=== PATIENT | female | born 2000 | race Hispanic/Latino ===

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

== ENCOUNTER 2023-03-24 14:48 | Inpatient (IN) | payer OTHER ==
[~2023-03-24] VITALS: Ht 152.4 cm; Wt 63.0 kg
[2023-03-24 15:44] LABS: BASOPHILS % (AUTO) 0.2 % (0.0-5.0); HEMATOCRIT 38.5 % (36-48); LYMPHOCYTES % (AUTO) 5.1 % (21.0-51.0); MEAN CORPUSCULAR HEMOGLOBIN 29.3 pg (27.0-33.0); MEAN CORPUSCULAR HGB CONC 33.2 g/dL (32.0-36.0); MEAN CORPUSCULAR VOLUME 88.1 fL (79-99); MONOCYTES % (AUTO) 2.2 % (3.0-13.0); NEUTROPHILS % (AUTO) 92.2 % (40.0-77.0); PLATELET COUNT (AUTO) 290 K/uL (130-400); RED BLOOD CELL COUNT(AUTO) 4.37 MIL/uL (4.00-5.50); RED CELL DISTRIBUTION WIDTH 12.2 % (11.0-15.5); WHITE BLOOD COUNT (AUTO) 14.4 K/uL (4.8-10.8)
[2023-03-24 16:06] LABS: APPEARANCE,URINE CLEAR (CLEAR); BILIRUBIN,URINE NEGATIVE (NEGATIVE); COLOR,URINE LIGHT-YELLOW (YELLOW); GLUCOSE, URINE (UA) NEGATIVE (NEGATIVE); KETONES,URINE 10 mg/dL (NEGATIVE); LEUKOCYTE ESTERASE ,URINE 25 Leu/uL (NEGATIVE); NITRATE,URINE NEGATIVE (NEGATIVE); OCCULT BLOOD,URINE NEGATIVE (NEGATIVE); PROTEIN,URINE NEGATIVE (NEGATIVE); UROBILINOGEN,URINE 0.2 mg/dL (0.2-1.0)
[2023-03-24 16:08] LABS: CARBON DIOXIDE 27 mmol/L (21-32); CHLORIDE 102 mmol/L (101-111); CREATININE 0.7 mg/dL (0.5-1.5); GLOMERULAR FILTR. RATE CALC 125 mL/min (>90); GLUCOSE,RANDOM 119 mg/dL (70-105); POTASSIUM 3.9 mmol/L (3.5-5.1); SODIUM SERUM 140 mmol/L (136-145); UREA NITROGEN, BLOOD 10 mg/dL (7-18)
[2023-03-24 16:08] LABS: MUCUS,URINE RARE LPF (None Seen); SQUAMOUS EPITHELIAL CELL,UR FEW /HPF (0-2)
[2023-03-24 16:09] LABS: ALANINE AMINOTRANSFERASE 21 U/L (12-78); ALBUMIN 4.5 g/dL (3.5-5.0); ASPARTATE AMINOTRANSFERASE 16 U/L (10-37)
[2023-03-24 16:11] LABS: LIPASE < 50 U/L (114-286)
[2023-03-24] MEDS ORDERED: IOHEXOL-350 75 ML VIAL IV ONE (17:00)
[2023-03-24] MEDS ORDERED: ZOSYN 3.375GM+NS 50ML 50 ML IVPB ONE (17:53)
[2023-03-24] MEDS ORDERED: ZOSYN 3.375GM +NS 50ML IVPB ONE (18:00)
[2023-03-24] MEDS: ZOSYN 3.375GM +NS 50ML IVPB SCH (18:30)
[2023-03-24] MEDS ORDERED: DiphenhydrAMINE HCL 50 MG/ML VIAL IV PRN (19:30)
[2023-03-24] MEDS ORDERED: MORPHINE 2 MG SYG IVP PRN (19:30)
[2023-03-24] MEDS ORDERED: ACETAMINOPHEN 650 MG SUPPOSITORY RC PRN (19:30)
[2023-03-24] MEDS ORDERED: KETOROLAC 15MG/ML VIAL (15MG/ML) IV PRN (19:30)
[2023-03-24] MEDS ORDERED: ONDANSETRON 4MG INJ IV PRN (19:30)
[2023-03-24] MEDS ORDERED: 0.9%NACL 50ML IV SCH (20:00)
[2023-03-24] MEDS: LACTATED RINGERS 1000ML 1,000 ML IV SCH ×2 (20:23→20:24)
[2023-03-24 20:36] VITALS: BP 108/66
[2023-03-24] MEDS ORDERED: ZOSYN 3.375GM+NS 50ML 50 ML IV SCH (21:00)
[2023-03-24] MEDS: FAMOTIDINE 20MG VIAL IV SCH (21:41)
[2023-03-24 22:12] VITALS: BP 104/66
[2023-03-25] VITALS (25 sets, daily range): BP systolic 86–140; BP diastolic 46–87
[2023-03-25] MEDS: ZOSYN 3.375GM +NS 50ML IVPB SCH ×3 (03:02→18:00)
[2023-03-25 04:15] LABS: HEMATOCRIT 35.3 % (36-48); MEAN CORPUSCULAR HEMOGLOBIN 29.2 pg (27.0-33.0); MEAN CORPUSCULAR HGB CONC 32.3 g/dL (32.0-36.0); MEAN CORPUSCULAR VOLUME 90.5 fL (79-99); RED BLOOD CELL COUNT(AUTO) 3.9 MIL/uL (4.00-5.50); RED CELL DISTRIBUTION WIDTH 12.4 % (11.0-15.5); WHITE BLOOD COUNT (AUTO) 8.2 K/uL (4.8-10.8)
[2023-03-25 04:28] LABS: CREATININE 0.7 mg/dL (0.5-1.5); POTASSIUM 3.7 mmol/L (3.5-5.1)
[2023-03-25] MEDS: FAMOTIDINE 20MG VIAL IV SCH ×2 (08:05→20:57)
[2023-03-25] MEDS: LACTATED RINGERS 1000ML 1,000 ML IV SCH ×2 (08:09→18:05)
[2023-03-25] MEDS ORDERED: GLYCOPYRROLATE 1 MG/5 ML SYRINGE ONE (09:41)
[2023-03-25] MEDS ORDERED: MIDAZOLAM HCL 1 MG/ML 2ML VIAL ONE (09:41)
[2023-03-25] MEDS ORDERED: PROPOFOL 10 MG/ML 20ML VIAL IV ONE (09:41)
[2023-03-25] MEDS ORDERED: DEXAMETHASONE SOD PHOSPHATE 10MG/ML 1ML VIAL ONE (09:41)
[2023-03-25] MEDS ORDERED: LIDOCAINE PF 100MG/5ML (2%) SYRINGE 5ML ONE (09:41)
[2023-03-25] MEDS ORDERED: ROCURONIUM 10MG/1ML SYR 10 MG/ML ML ONE (09:41)
[2023-03-25] MEDS ORDERED: SUCCINYLCHOLINE CHLORIDE 20 MG/ML 10 ML VIAL ONE (09:41)
[2023-03-25] MEDS ORDERED: NEOSTIGMINE 5MG/5ML SYR IV ONE (09:41)
[2023-03-25] MEDS ORDERED: ONDANSETRON 4MG INJ ONE (09:41)
[2023-03-25] MEDS ORDERED: FENTANYL CITRATE PF 50 MCG/1 ML 2ML VIAL ONE (09:42)
[2023-03-25] MEDS ORDERED: BUPIVACAINE/PF 0.5% 50ML 5 MG/ML VIAL ONE (10:04)
[2023-03-25] MEDS ORDERED: BUPIVACAINE/PF 0.5% 50ML 5 MG/ML VIAL IJ ONE (10:42)
[2023-03-25] MEDS ORDERED: KETOROLAC 30MG VIAL (30MG/ML) ONE (10:59)
[2023-03-25] MEDS ORDERED: MEPERIDINE-PF 25 MG/ML SYG ONE ×2 (11:37→11:59)
[2023-03-25] MEDS: MORPHINE 4 MG SYG IVP PRN ×2 (14:51→20:57)
[2023-03-26] MEDS: ZOSYN 3.375GM +NS 50ML IVPB SCH ×2 (02:07→12:47)
[2023-03-26 03:45] VITALS: BP 89/47
[2023-03-26 05:27] LABS: BASOPHILS % (AUTO) 0.1 % (0.0-5.0); EOSINOPHILS % (AUTO) 0.1 % (0.0-8.0); HEMATOCRIT 32.5 % (36-48); LYMPHOCYTES % (AUTO) 10.4 % (21.0-51.0); MEAN CORPUSCULAR HGB CONC 32.3 g/dL (32.0-36.0); MEAN CORPUSCULAR VOLUME 89.8 fL (79-99); MONOCYTES % (AUTO) 6.9 % (3.0-13.0); PLATELET COUNT (AUTO) 230 K/uL (130-400); RED BLOOD CELL COUNT(AUTO) 3.62 MIL/uL (4.00-5.50); RED CELL DISTRIBUTION WIDTH 12.1 % (11.0-15.5); WHITE BLOOD COUNT (AUTO) 9.3 K/uL (4.8-10.8)
[2023-03-26 05:31] LABS: ALBUMIN 3.1 g/dL (3.5-5.0); ASPARTATE AMINOTRANSFERASE 14 U/L (10-37); CARBON DIOXIDE 26 mmol/L (21-32); CHLORIDE 105 mmol/L (101-111); CREATININE 0.8 mg/dL (0.5-1.5); GLOMERULAR FILTR. RATE CALC 107 mL/min (>90); GLUCOSE,RANDOM 136 mg/dL (70-105); POTASSIUM 3.8 mmol/L (3.5-5.1); SODIUM SERUM 139 mmol/L (136-145); TOTAL PROTEIN, SERUM 6.3 g/dL (6.0-8.3); UREA NITROGEN, BLOOD 8 mg/dL (7-18)
[2023-03-26 05:47] LABS: ALANINE AMINOTRANSFERASE < 6 U/L (12-78)
[2023-03-26] MEDS ORDERED: IBUP-2071 PO (06:43)
[2023-03-26 07:13] VITALS: BP 98/55
[2023-03-26] MEDS: FAMOTIDINE 20MG VIAL IV SCH (08:36)
[2023-03-26 12:00] VITALS: BP 97/59
[2023-03-26 15:55] VITALS: BP 97/52
== END 2023-03-26 17:20 | disposition home or self-care (01) | DRG 341 ==
LOC: EDH 14:48 → EDHIP 14:49 → UNDOADMIN 19:03 → WSH 20:33
PROVIDERS: ADMIT Hospitalist; ATTEND Hospitalist
PROC: 0DTJ4ZZ Resection of Appendix, Percutaneous Endoscopic Approach (ICD-10-PCS; principal; 2023-03-25 10:42)
DX: K35.80 Unspecified acute appendicitis (principal); R65.11 Systemic inflammatory response syndrome (SIRS) of non-infectious origin with acute organ dysfunction; Z20.822 Contact with and (suspected) exposure to COVID-19; J45.909 Unspecified asthma, uncomplicated
CPT/HCPCS: 36415; 74177; 80048; 80053; 81001; 81025; 83605; 83690; 84702; 85025; 85027; 87635; G0378; J0330; J1100; J1885; J2001; J2175; J2250; J2270; J2405; J2543; J2704; J2710; J3010; J3490; J7120; Q9967

== ENCOUNTER 2024-08-20 07:33 | Emergency (ER) | payer BC, MEDICAID ==
[~2024-08-20] VITALS: Ht 152.4 cm; Wt 75.7 kg
[~2024-08-20 07:33] MED LIST: IBUP-2071 PO
[2024-08-20 08:18] LABS: APPEARANCE,URINE CLOUDY (CLEAR); BILIRUBIN,URINE NEGATIVE (NEGATIVE); COLOR,URINE LIGHT-YELLOW (YELLOW); GLUCOSE, URINE (UA) NEGATIVE (NEGATIVE); KETONES,URINE NEGATIVE (NEGATIVE); LEUKOCYTE ESTERASE ,URINE 500 Leu/uL (NEGATIVE); NITRATE,URINE NEGATIVE (NEGATIVE); OCCULT BLOOD,URINE NEGATIVE (NEGATIVE); PH,URINE 6.5 (5.0-8.0); PROTEIN,URINE NEGATIVE (NEGATIVE); UROBILINOGEN,URINE 0.2 mg/dL (0.2-1.0)
[2024-08-20 08:26] LABS: ADD UA MICROSCOPIC YES
[2024-08-20 08:29] LABS: BACTERIA,URINE RARE /HPF (None Seen); MUCUS,URINE RARE LPF (None Seen); OTHER CASTS, URINE 1 /LPF (None Seen); SQUAMOUS EPITHELIAL CELL,UR MANY /HPF (0-2)
[2024-08-20] MEDS: 0.9%NACL 1000ML 1,000 ML IV ONE (09:08)
[2024-08-20] MEDS: acetaMINOPHEN 500 MG TABLET PO ONE (09:10)
[2024-08-20] MEDS: ondanSETRON 4MG INJ IVP ONE (09:10)
[2024-08-20] MEDS: DiphenhydrAMINE HCL 25 MG/10 ML ELIXIR UDCUP PO ONE (09:10)
[2024-08-20 09:12] LABS: SARS-CoV-2, RNA, NAAT NEGATIVE SARS CoV-2 (NEGATIVE)
[2024-08-20 09:16] LABS: INFLUENZA TYPE A Negative For Type A (NEGATIVE); INFLUENZA TYPE B Negative For Type B (NEGATIVE)
[2024-08-20 09:20] LABS: RAPID GROUP A STREP negative (NEGATIVE)
[2024-08-20 11:06] VITALS: BP 103/72; PULSE 100; RESP 18; TEMP 97.9; O2SAT 96
[2024-08-20] MEDS ORDERED: ALBUHFA IH (11:13)
[2024-08-20] MEDS ORDERED: ONDA-243 PO (11:13)
== END 2024-08-20 11:23 | disposition home or self-care (01) ==
LOC: EDH 07:33
DX: O99.512 Diseases of the respiratory system complicating pregnancy, second trimester (principal); J06.9 Acute upper respiratory infection, unspecified; J45.909 Unspecified asthma, uncomplicated; Z3A.16 16 weeks gestation of pregnancy; Z20.822 Contact with and (suspected) exposure to COVID-19
CPT/HCPCS: 99283; 96374; 87635; 96361; 87086; 87880; 87804 ×2; 81001; J7030; J2405